=== PATIENT | male | born 1955 | race Caucasian/White ===

== ENCOUNTER → 2017-05-07 | Outpatient (CLI) | payer OTHER | LOC: FIMAGING 08:20 | PROVIDERS: ATTEND Family Medicine | DX: M25.551 Pain in right hip (principal) ==

== ENCOUNTER → 2017-09-24 | Outpatient (CLI) | payer OTHER | LOC: FIMAGING 16:09 | PROVIDERS: ATTEND Family Medicine | DX: M19.011 Primary osteoarthritis, right shoulder (principal) ==

== ENCOUNTER → 2017-09-30 | Outpatient (CLI) | payer OTHER | LOC: FIMAGING 08:52 | PROVIDERS: ATTEND Family Medicine | DX: S46.911A Strain of unspecified muscle, fascia and tendon at shoulder and upper arm level, right arm, initial encounter (principal) ==

== ENCOUNTER 2018-08-31 16:26 | Emergency (ER) | payer OTHER ==
--- NOTE | 2018-08-31 16:55 | EDPHY ---
H & P Stated Complaint: Problems with urinating since having food poisoning last Sunday. Time Seen by Provider: 08/31/18 16:43 HPI/ROS: CHIEF COMPLAINT: Urinary retention HISTORY OF PRESENT ILLNESS: The patient is a 63-year-old man who comes to the emergency department complaining of urinary retention for the last 12 hr. The patient and his both he had food poisoning on Sunday with vomiting and diarrhea. The symptoms resolved. The patient has still had slight diarrhea for the last few days and then beginning yesterday had trouble urinating. He has a history of large prostate but no cancer and no previous procedures or surgeries. He states that this is never happened before. No blood in his urine or stool. Severity: Severe Modifying factors: None REVIEW OF SYSTEMS: Constitutional: denies: chills, fever, recent illness, recent injury EENTM: denies: blurred vision, double vision, nose congestion Respiratory: denies: cough, shortness of breath Cardiac: denies: chest pain, irregular heart rate, lightheadedness, palpitations Gastrointestinal/Abdominal: denies: abdominal pain, diarrhea, nausea, vomiting, blood streaked stools Genitourinary: See HPI Musculoskeletal: denies: joint pain, muscle pain Skin: denies: lesions, rash, jaundice, bruising Neurological: denies: headache, numbness, paresthesia, tingling, dizziness, weakness Hematologic/Lymphatic: denies: blood clots, easy bleeding, easy bruising Immunologic/allergic: denies: HIV/AIDS, transplant 10 systems reviewed and negative except as noted EXAM: GENERAL: Uncomfortable, moderate distress, HEAD: Atraumatic, normocephalic. EYES: Pupils equal round and reactive to light, extraocular movements intact, sclera anicteric, conjunctiva are normal. ENT: TMs normal, nares patent, oropharynx clear without exudates. Moist mucous membranes. NECK: Normal range of motion, supple without lymphadenopathy or JVD. LUNGS: Breath sounds clear to auscultation bilaterally and equal. No wheezes rales or rhonchi. HEART: Regular rate and rhythm without murmurs, rubs or gallops. ABDOMEN: Slightly distended suprapubic region, tender, normoactive bowel sounds. No guarding, no rebound. No masses appreciated. BACK: No CVA tenderness, no spinal tenderness, step-offs or deformities EXTREMITIES: Normal range of motion, no pitting or edema. No clubbing or cyanosis. NEUROLOGICAL: Cranial nerves II through XII grossly intact. Normal speech, normal gait. 5/5 strength, normal movement in all extremities, normal sensation , normal reflexes PSYCH: Normal mood, normal affect. SKIN: Warm, dry, normal turgor, no visible rashes or lesions. Source: Patient Exam Limitations: No limitations - Personal History Current Tetanus Diphtheria and Acellular Pertussis (TDAP): Yes - Medical/Surgical History Hx Asthma: No Hx Chronic Respiratory Disease: No Hx Diabetes: No Hx Cardiac Disease: No Hx Renal Disease: No Hx Cirrhosis: No Hx Alcoholism: No Hx HIV/AIDS: No Hx Splenectomy or Spleen Trauma: No Other PMH: BPH - Family History Significant Family History: No pertinent family hx - Social History Smoking Status: Never smoked Alcohol Use: None Constitutional: Initial Vital Signs Temperature (C) 36.6 C 08/31/18 16:27 Heart Rate 79 08/31/18 16:27 Respiratory Rate 19 08/31/18 16:27 Blood Pressure 162/90 H 08/31/18 16:27 O2 Sat (%) 96 08/31/18 16:27 O2 Delivery Mode Room Air Allergies/Adverse Reactions: No Known Allergies Allergy (Unverified 08/17/10 07:14) Home Medications: Medication Instructions Recorded NK [No Known Home Meds] 08/31/18 Medical Decision Making ED Course/Re-evaluation: 530 the patient's Holly has drained about 1000 cc. He feels completely better. Answered questions about Holly is in leg bags. He will follow up with Urology next week for removal and further diagnostics. He and his were comfortable with this. Will check urine to make sure it does not appear infected although it is very clear . Differential Diagnosis: Partial list of the Differential diagnosis considered include but were not limited to; prostatic hypertrophy, urinary retention and although unlikely based on the history and physical exam, I also considered urinary tract infection, stone, tumor. I discussed these differential diagnoses and the plan with the patient as well as the usual and expected course. The patient understands that the diagnosis is provisional and that in medicine we are not always correct and that further workup is often warranted. Usual and customary warnings were given. All of the patient's questions were answered. The patient was instructed to return to the emergency department should the symptoms at all worsen or return, otherwise to followup with the physician as we discussed. Departure - Departure Disposition: Home, Routine, Self-Care Clinical Impression: Urinary retention due to benign prostatic hyperplasia Condition: Fair Instructions: Urinary Retention in Men (ED), Holly Catheter Placement and Care (ED) Referrals: Nicolas Paredes DO [Primary Care Provider] - As per Instructions Camden Smith MD [Medical Doctor] - 5-7 days, call for appt.
[2018-08-31 18:14] VITALS: BP 129/86
== END 2018-08-31 18:14 | disposition home or self-care (01) ==
PROC: 0T9B70Z Drainage of Bladder with Drainage Device, Via Natural or Artificial Opening (ICD-10-PCS; principal; 2018-08-31)
DX: N40.1 Benign prostatic hyperplasia with lower urinary tract symptoms (principal); R33.9 Retention of urine, unspecified

== ENCOUNTER 2018-09-03 08:10 | Emergency (ER) | payer OTHER ==
[2018-09-03 08:16] VITALS: BP 139/78
--- NOTE | 2018-09-03 08:47 | EDPHY ---
H & P Time Seen by Provider: 09/03/18 08:26 HPI/ROS: HPI Holly catheter problem. 63-year-old male by private vehicle. This patient was seen in our emergency department on August 31 through urinary retention. He has a history of BPH. He had a Holly catheter placed successfully at that time. He has a scheduled urology follow-up appointment this Sunday. He presents to the emergency department stating that he had a small clot in his collection bag this morning with normal colored urine and some leaking of urine around his penile meatus. He denies any other complaints. ROS: Constitutional: No fever, no chills. No weakness. Gastrointestinal: No abdominal pain, no vomiting, no diarrhea. Genitourinary: As above. Musculoskeletal: No back pain. No myalgias or arthralgias. Neurological: No headache. No focal weakness or altered sensation. Past medical history: BPH. As above. Social history: Here by himself. Nonsmoker. No alcohol. Physical Exam: General Appearance: Alert, no distress. This patient is responding to questions appropriately and in full sentences. This patient appears well- hydrated and well-nourished. Eyes: Pupils equal and round no pallor or injection. No lid edema, erythema or injection. Genitourinary: [address] Collection bag has about 600 cc of yellow clear urine in it. There is a small clot measuring about a mm to a mm in half in diameter in the collection bag. No gross blood around the penile meatus. No obvious leaking around the penile meatus. Genitalia otherwise unremarkable on gross inspection. Neurological: Motor sensory function is grossly intact. Cranial nerves are normal. Gait is normal. Skin: Warm and dry, no rashes. Musculoskeletal: No CVA tenderness bilaterally. Extremities are symmetrical. All joints range without pain or impingement. Psychiatric: No agitation. No depression. Database: EKG: Imaging: Procedures: Emergency department course: Triage vital signs reviewed and are unremarkable. I discussed management options with this patient. There is no active hemorrhage and no significant leakage on exam now. We will check the balloon on the Holly catheter. I explained that rather than replacing it and avoiding that trauma, it would be reasonable to keep the Holly catheter in place as a is and wear depends until seen on follow-up with Urology which is scheduled for this Sunday. The patient elects to not have the Holly catheter replaced. The small clot that was seen in his urinary collection bag is likely secondary to trauma from the original placement of the Holly catheter. I feel that hemorrhagic cystitis is unlikely. 9:05 a.m., the patient was re-evaluated. Holly balloon was inflated from 7 cc to 10 cc. There is no leakage. He feels comfortable going home with the Holly catheter in place. Plan as above reviewed. He will follow up with Urology as scheduled on Sunday. He saw his primary care physician yesterday. He has been started on Flomax. Return to emergency department precautions reviewed with him. All of his questions were answered. He was discharged from the emergency department in good condition. Differential Diagnosis: The differential diagnosis on this patient includes but is not limited to Holly catheter leaking. Hemorrhagic cystitis unlikely. This represents a partial list of diagnoses considered. These considerations are based on history, physical exam, past history, reassessment and diagnostic testing. Smoking Status: Never smoked Constitutional: Initial Vital Signs Temperature (C) 36.6 C 09/03/18 08:11 Heart Rate 48 L 09/03/18 08:11 Respiratory Rate 18 09/03/18 08:11 Blood Pressure 139/78 H 09/03/18 08:11 O2 Sat (%) 96 09/03/18 08:11 O2 Delivery Mode Room Air Allergies/Adverse Reactions: No Known Allergies Allergy (Unverified 08/17/10 07:14) Home Medications: Medication Instructions Recorded NK [No Known Home Meds] 08/31/18 Departure - Departure Disposition: Home, Routine, Self-Care Clinical Impression: Problem with Holly catheter Condition: Good Instructions: Holly Catheter Placement and Care (ED) Additional Instructions: Read and follow provided instructions. Follow-up with Urology as you are scheduled on Sunday. Take Flomax as prescribed. Wear depends absorbable briefs to manage leakage. Return to the emergency department for gross blood in urine, clogging of Holly catheter, back pain, fever or other serious concerns. Referrals: Nicolas Paredes DO [Primary Care Provider] - As per Instructions
== END 2018-09-03 09:14 | disposition home or self-care (01) ==
DX: T83.098A Other mechanical complication of other urinary catheter, initial encounter (principal); Y73.2 Prosthetic and other implants, materials and accessory gastroenterology and urology devices associated with adverse incidents

== ENCOUNTER 2018-09-05 15:52 | Emergency (ER) | payer OTHER ==
--- NOTE | 2018-09-05 16:40 | EDPHY ---
General Time Seen by Provider: 09/05/18 16:30 Narrative: CLINICAL IMPRESSION: Holly catheter problem ASSESSMENT/PLAN: Patient is a 63 year old male with a significant medical history of BPH who presents to the emergency department with complaints of leaking around his Holly catheter. Holly catheter originally placed on August 31 for acute urinary retention. Patient is afebrile and not toxic-appearing, he is in no acute distress on arrival . Patient's abdomen was soft and nontender; no evidence of a surgical abdomen. Bladder scan revealed approximately 100 cc of retained urine. History and physical examination today is consistent with leakage around Holly catheter without evidence of recurrent obstructive pattern. His 16 Latvian coude was exchanged for in 18 Latvian catheter without difficulty and without recurrent leaking. There is no evidence of infection, no fever, no vomiting. All symptoms seem to be resolved with up sizing his Holly catheter. He will keep his scheduled appointment with Urology with Dr. Smith next Sunday. Conservative return precautions discussed-he will return for development of fever, constitutional symptoms, abdominal pain, urinary retention or for any other concerning symptom. Patient verbalized understanding and he is in agreement with this plan. DIFFERENTIAL DX: Differential diagnosis including but not limited to recurrent obstruction, Holly malfunction, an adequate sizing, infectious process ED COURSE: 1636: Case discussed with Dr. Baltazar CHIEF COMPLAINT: Holly catheter leaking HPI: Patient is a 63-year-old male with a history of BPH who presents to the emergency department with complaints of leaking around his Holly catheter. Patient was initially seen and evaluated on August 31 for acute urinary retention, a Holly catheter was placed at that time. Patient return to the emergency department on September 03, 2 days prior for complaints of leaking around his Holly catheter as well as seeing some blood clots in the collection bag. Patient denies any fevers, chills, nausea, vomiting, chest pain, shortness of breath or abdominal pain. He does feel that his urinary output is low however he still is having mostly clear output in his Holly catheter bag. Patient reports an increasing leakage since his visit 2 days ago, he is frustrated as he is wetting his pants. He was under the impression that his appointment was tomorrow with Urology however it is not until next Sunday. PAST MEDICAL HISTORY: BPH Family History: Noncontributory Social History: Denies ROS: A full 10 point review of systems was negative except for those mentioned in HPI. PHYSICAL EXAM: General Appearance: Well-appearing and in no acute distress. HENT: Normocephalic, atraumatic. External ears are normal. Nares are clear. Oropharynx is clear, mucosa is mildly dry. Eyes: PERRLA, no acute vision change, nystagmus, swelling, discharge, pain or photosensitivity. Conjunctiva pink, no pallor or injection. Neck: Supple, nontender, no lymphadenopathy, no midline pain, FROM, no meningismus. Respiratory: There are no retractions, lungs are clear to auscultation. Cardiac: Regular rate and rhythm, no murmurs or gallops. Gastrointestinal: Abdomen is soft, nontender, bowel sounds normal, no masses/ hernia, no rigidity, guarding or focal peritoneal findings. Skin: Warm, dry, no rashes, no nodules on palpation. MEDICAL DECISION MAKING: Patient was seen independently. Secondary supervising physician at time of evaluation was Dr. Hicks, he did not evaluate this patient. Diagnosis: Urinary leakage around Holly catheter. New, requires workup Summary: See Assessment and Plan for summary of ED visit Clinical lab tests: Not applicable. Independent visualization of images, tracing, or specimens: Not applicable. Decision to obtain medical records or history from someone other than the patient: No Review / Summarize previous medical records: Yes Discussed patient with another provider: Yes, Dr. Baltazar Patient Progress: Stable, discharged. - History Smoking Status: Never smoked - Objective Vital Signs: Initial Vital Signs Temperature (C) 36.6 C 09/05/18 15:57 Heart Rate 64 09/05/18 15:57 Respiratory Rate 16 09/05/18 15:57 Blood Pressure 156/87 H 09/05/18 15:57 O2 Sat (%) 94 09/05/18 15:57 O2 Delivery Mode Room Air Allergies/Adverse Reactions: No Known Allergies Allergy (Unverified 09/05/18 15:56) Home Medications: Medication Instructions Recorded Flomax 02/14/19 Medications Given: Discontinued Medications Lidocaine (Uroject Lidocaine 2% Jelly) 20 ml UR EDNOW ONE Stop: 09/05/18 17:12 Last Admin: 09/05/18 17:17 Dose: Not Given Departure - Departure Disposition: Home, Routine, Self-Care Clinical Impression: Holly catheter problem Qualifiers: Encounter type: subsequent encounter Qualified Code(s): T83.9XXD - Unspecified complication of genitourinary prosthetic device, implant and graft, subsequent encounter Condition: Good Instructions: Holly Catheter Placement and Care (ED) Additional Instructions: DISCHARGE INSTRUCTIONS FROM YOUR DOCTOR Thank you for visiting our emergency department today. Please keep in mind that discharge from the emergency department does not mean that there is nothing wrong - it simply means that we have not identified an emergency condition that requires further evaluation or treatment in the hospital. Please continue taking all of your current medications as directed. Please continue caring for your Holly catheter as you have been directed. Please follow-up with Urology as planned and as discussed next Sunday. People present with illnesses and injuries in different ways, and it is always possible that we have missed something. You may always return for re-evaluation if symptoms worsen or if they are not improving or if you develop new/different symptoms. Again, thank you for choosing our emergency department. We hope that you feel better. Referrals: Nicolas Paredes DO [Primary Care Provider] - As per Instructions
[2018-09-05] MEDS ORDERED: LIDOCAINE 2% JELLY 20 ML (UROJECT) UR ONE (17:11)
[2018-09-05 17:52] VITALS: BP 148/80
== END 2018-09-05 17:51 | disposition home or self-care (01) ==
DX: R33.9 Retention of urine, unspecified (principal); T83.9XXA Unspecified complication of genitourinary prosthetic device, implant and graft, initial encounter